=== PATIENT | male | born 1955 | race American Indian/Alaskan Native ===

== ENCOUNTER 2020-01-28 09:21 | Outpatient (CLI) | payer OTHER ==
--- NOTE | 2020-01-28 10:25 | XRay Report ---
LUMBAR SPINE 3 VIEWS INDICATION / CLINICAL INFORMATION: BACK PAIN. COMPARISON: CT abdomen and pelvis dated 08/05/2011. FINDINGS: VERTEBRAE: No acute fracture. No significant malalignment. DISC SPACES / FACET JOINTS:Mild multilevel degenerative changes are noted of the spine with marginal osteophytes. Facet arthropathy is noted at L5-S1. PARASPINAL SOFT TISSUES:Mild vascular calcifications. ADDITIONAL FINDINGS: None. Signer Name: Miller Garcia MD Signed: 01/28/2020 10:21 AM Workstation Name: [id number]
--- NOTE | 2020-01-28 10:26 | XRay Report ---
BILATERAL KNEE 4 VIEW(S) INDICATION / CLINICAL INFORMATION: RIGHT AND LEFT KNEE PAIN COMPARISON: None available. FINDINGS: BONES / JOINT(S): No acute fracture or subluxation. No significant arthritis. SOFT TISSUES: Mild bilateral suprapatellar knee joint effusions. ADDITIONAL FINDINGS: Vascular calcifications are noted. Signer Name: Miller Garcia MD Signed: 01/28/2020 10:22 AM Workstation Name: [id number]
== END 2020-01-28 09:22 | disposition home or self-care (01) ==
LOC: XRAY 09:21
PROVIDERS: ATTEND Internal Medicine
DX: M47.817 Spondylosis without myelopathy or radiculopathy, lumbosacral region (principal); M25.78 Osteophyte, vertebrae; M25.461 Effusion, right knee; M25.462 Effusion, left knee; I70.209 Unspecified atherosclerosis of native arteries of extremities, unspecified extremity
CPT/HCPCS: 72100